=== PATIENT | female | born 1930 | race African-American/Black ===

== ENCOUNTER 2017-06-05 10:24 | Inpatient (IN) | payer MEDICARE, MEDICAID ==
[~2017-06-05] VITALS: Ht 160 cm; Wt 59.0 kg
[2017-06-05] MEDS ORDERED: FOLI-43 PO (10:41)
[2017-06-05] MEDS ORDERED: MULT-1146 PO (10:41)
[2017-06-05] MEDS ORDERED: ASPI-1159 PO (10:41)
[2017-06-05] MEDS ORDERED: GABA-531 PO (10:41)
[2017-06-05] MEDS ORDERED: CITA20TA11 PO (10:41)
[2017-06-05] MEDS ORDERED: ZET10 PO (10:41)
[2017-06-05 11:31] LABS: BASOPHILS % 0.5 % (0.0-2.0); HEMOGLOBIN. 12.4 g/dL (12.0-16.0); LYMPHOCYTES % 28.8 % (20.0-50.0); MEAN CORPUSCULAR HEMOGLOBIN 27.3 pg (28.0-32.0); MEAN CORPUSCULAR VOLUME 83.6 fL (81.0-99.0); MONOCYTES % 6.5 % (2.0-8.0); NEUTROPHILS % 63.2 % (40.0-76.0); PLATELET 179 x1000/uL (130-400); RED BLOOD CELL COUNT 4.55 mill/uL (4.2-5.4); RED CELL DISTRIBUTION WIDTH 13.6 % (11.6-14.6)
[2017-06-05 11:39] LABS: CARBON DIOXIDE 32 mEq/L (21-32); CHLORIDE 105 mEq/L (98-107)
[2017-06-05 11:46] LABS: PROTHROMBIN TIME 10.9 sec (9.4-11.6)
[2017-06-05] MEDS ORDERED: POTASSIUM CHLORIDE 10MEQ TABLET SR PO ONE (13:45)
[2017-06-05] MEDS ORDERED: LISI-186 PO (16:46)
[2017-06-05 17:15] VITALS: BP 154/74
[2017-06-05 17:37] VITALS: BP 154/74
[2017-06-05] MEDS ORDERED: MAGNESIUM/ALUMINUM HYDROXIDE/SIMETHICONE 30ML UDC PO PRN (18:00)
[2017-06-05] MEDS ORDERED: ONDANSETRON HCL 4MG/2ML VIAL IV PRN (18:00)
[2017-06-05] MEDS ORDERED: GUAIFENESIN 200MG/10ML SUGAR FREE UDC PO PRN (18:00)
[2017-06-05] MEDS ORDERED: HYDRALAZINE 20MG/ML VIAL IV PRN (18:00)
[2017-06-05] MEDS ORDERED: CLONIDINE 0.1MG TABLET PO PRN (18:00)
[2017-06-05] MEDS ORDERED: POTASSIUM CHLORIDE 20MEQ/PACKET PO SCH (18:00)
[2017-06-05] MEDS ORDERED: IPRATROPIUM/ALBUTEROL 0.5-3(2.5)MG/3ML NEB INH PRN (18:00)
[2017-06-05] MEDS ORDERED: MAGNESIUM 1 G PREMIX 100 ML IV PRN (18:00)
[2017-06-05] MEDS ORDERED: DIPHENHYDRAMINE 50MG/ML VIAL IV PRN (18:00)
[2017-06-05] MEDS ORDERED: MORPHINE SULFATE 2 MG/ML CPJ (NOT FOR IM USE) IV PRN (18:15)
[2017-06-05 20:00] VITALS: BP 146/74
[2017-06-05] MEDS: CITALOPRAM HYDROBROMIDE 10MG TABLET PO SCH (21:40)
[2017-06-05] MEDS: GABAPENTIN 100MG CAPSULE PO SCH (21:41)
[2017-06-06] VITALS: BP 131/65
[2017-06-06] MEDS: DEXT 5%/0.45% NACL KCL 10MEQ/L 1,000 ML IV SCH ×2 (00:42→20:00)
[2017-06-06 04:00] VITALS: BP 153/73
[2017-06-06] MEDS: ACETAMINOPHEN 325MG TABLET PO PRN ×2 (06:12→22:50)
[2017-06-06] MEDS ORDERED: HYDROMORPHONE HCL/PF 2MG/ML CPJ IV PRN (06:45)
[2017-06-06] MEDS ORDERED: LABETALOL HCL 20MG/4ML CARPUJECT IV PRN (06:45)
[2017-06-06] MEDS ORDERED: ONDANSETRON HCL 4MG/2ML VIAL IV PRN (06:45)
[2017-06-06] MEDS ORDERED: MEPERIDINE HCL/PF 25MG/ML CPJ IV PRN (06:45)
[2017-06-06] MEDS ORDERED: BACITRACIN 50,000 UNITS/VIAL ONE (06:55)
[2017-06-06] MEDS ORDERED: BACITRACIN ZINC 15GM TUBE TOP ONE (06:55)
[2017-06-06] MEDS ORDERED: VANCOMYCIN HCL 500 MG/VIAL ONE (06:55)
[2017-06-06] MEDS ORDERED: NORMAL SALINE 0.9% 10 ML SYR ONE (06:56)
[2017-06-06] MEDS ORDERED: FENTANYL CITRATE/PF 50MCG/ML 2ML VIAL ONE (06:57)
[2017-06-06] MEDS ORDERED: MIDAZOLAM HCL 2 MG/2 ML VIAL ONE (06:57)
[2017-06-06] MEDS ORDERED: ONDANSETRON HCL 4MG/2ML VIAL ONE ×2 (07:08→07:36)
[2017-06-06] MEDS ORDERED: PROPOFOL 200MG/20ML VIAL IV ONE (07:35)
[2017-06-06] MEDS ORDERED: LIDOCAINE HCL 1% 20ML VIAL (Pyxis) INJ ONE (07:35)
[2017-06-06] MEDS ORDERED: CEFAZOLIN SODIUM 1000MG/VIAL ONE (07:35)
[2017-06-06] MEDS ORDERED: EPHEDRINE SULFATE 50MG/ML VIAL ONE (07:36)
[2017-06-06] MEDS ORDERED: DEXAMETHASONE 4MG/ML 1ML VIAL ONE (07:36)
[2017-06-06] MEDS ORDERED: SODIUM CHLORIDE 0.9% 10ML VIAL ONE (07:36)
[2017-06-06 10:00] VITALS: BP 135/69
[2017-06-06 12:47] VITALS: BP 140/72
[2017-06-06] MEDS: CEFAZOLIN 1000MG PREMIX 50 ML IV SCH ×2 (15:13→23:43)
[2017-06-06] MEDS ORDERED: SUCCINYLCHOLINE CHLORIDE 200MG/10ML VIAL IV ONE (15:53)
[2017-06-06 17:38] VITALS: BP 130/70
[2017-06-06 20:00] VITALS: BP 149/76
[2017-06-06] MEDS: GABAPENTIN 100MG CAPSULE PO SCH (21:33)
[2017-06-06] MEDS: CITALOPRAM HYDROBROMIDE 10MG TABLET PO SCH (21:33)
[2017-06-07] VITALS: BP 144/80
[2017-06-07 04:00] VITALS: BP 149/68
[2017-06-07 08:10] VITALS: BP 176/82
[2017-06-07] MEDS: ENOXAPARIN 30MG/0.3ML SYR SUBCUT SCH (10:24)
[2017-06-07 12:46] VITALS: BP 134/62
[2017-06-07] MEDS: ACETAMINOPHEN 325MG TABLET PO PRN (15:45)
[2017-06-07] MEDS: DEXT 5%/0.45% NACL KCL 10MEQ/L 1,000 ML IV SCH ×2 (16:00→23:51)
[2017-06-07] MEDS ORDERED: POLYVINYL ALCOHOL OPHTH DROPS 15ML BOTHEYE PRN (16:30)
[2017-06-07 16:59] VITALS: BP 151/70
[2017-06-07 20:00] VITALS: BP 151/60
[2017-06-07] MEDS: GABAPENTIN 100MG CAPSULE PO SCH (21:33)
[2017-06-07] MEDS: CITALOPRAM HYDROBROMIDE 10MG TABLET PO SCH (21:34)
[2017-06-08] VITALS: BP 122/60
[2017-06-08 04:00] VITALS: BP 130/65
[2017-06-08 07:58] VITALS: BP 137/62
[2017-06-08] MEDS: ENOXAPARIN 30MG/0.3ML SYR SUBCUT SCH (08:53)
[2017-06-08 12:00] VITALS: BP 138/64
[2017-06-08 16:00] VITALS: BP 140/61
[2017-06-08] MEDS: CARBIDOPA/LEVODOPA 10/100MG TABLET PO SCH ×2 (17:05→20:59)
[2017-06-08] MEDS: ACETAMINOPHEN 325MG TABLET PO PRN (17:19)
[2017-06-08 17:50] LABS: VITAMIN B12 SERUM 377 pg/mL (211-911)
[2017-06-08 20:00] VITALS: BP 110/59
[2017-06-08] MEDS: GABAPENTIN 100MG CAPSULE PO SCH (20:59)
[2017-06-09] VITALS (7 sets, daily range): BP systolic 106–171; BP diastolic 53–84
[2017-06-09] MEDS: CARBIDOPA/LEVODOPA 10/100MG TABLET PO SCH ×3 (06:21→20:53)
[2017-06-09] MEDS: ENOXAPARIN 30MG/0.3ML SYR SUBCUT SCH (09:19)
[2017-06-09] MEDS: GABAPENTIN 100MG CAPSULE PO SCH (20:53)
[2017-06-10] VITALS: BP_SYST 131; BP_SYST 150; BP_DIAS 64; BP_DIAS 90
[2017-06-10 04:00] VITALS: BP 130/59
[2017-06-10 05:08] VITALS: BP 130/59
[2017-06-10] MEDS: CARBIDOPA/LEVODOPA 10/100MG TABLET PO SCH ×2 (05:43→14:47)
[2017-06-10 08:00] VITALS: BP 116/52
[2017-06-10] MEDS: ENOXAPARIN 30MG/0.3ML SYR SUBCUT SCH (08:57)
[2017-06-10 12:00] VITALS: BP 100/60
[2017-06-10 16:26] VITALS: BP 100/60
== END 2017-06-10 17:00 | DRG 482 ==
LOC: ER 11:00 → 6WST 12:49 → ENRESERV 15:45 → 8WST 06-09 11:22
PROVIDERS: ADMIT Internal Medicine; ATTEND Internal Medicine
PROC: 0QS734Z Reposition Left Upper Femur with Internal Fixation Device, Percutaneous Approach (ICD-10-PCS; principal; 2017-06-06 06:41)
DX: S72.012A Unspecified intracapsular fracture of left femur, initial encounter for closed fracture (principal); G62.9 Polyneuropathy, unspecified; G20 Parkinson's disease; G30.0 Alzheimer's disease with early onset; F02.80 Dementia in other diseases classified elsewhere, unspecified severity, without behavioral disturbance, psychotic disturbance, mood disturbance, and anxiety; J44.9 Chronic obstructive pulmonary disease, unspecified; I10 Essential (primary) hypertension; E87.6 Hypokalemia; E78.00 Pure hypercholesterolemia, unspecified; W01.0XXA Fall on same level from slipping, tripping and stumbling without subsequent striking against object, initial encounter; Y92.098 Other place in other non-institutional residence as the place of occurrence of the external cause; Y99.8 Other external cause status; Y93.89 Activity, other specified; Z85.3 Personal history of malignant neoplasm of breast; Z90.12 Acquired absence of left breast and nipple; Z88.5 Allergy status to narcotic agent; Z83.3 Family history of diabetes mellitus; Z82.49 Family history of ischemic heart disease and other diseases of the circulatory system; Z80.9 Family history of malignant neoplasm, unspecified; Z79.899 Other long term (current) drug therapy
CPT/HCPCS: 36415; 70450; 71010; 73502; 73503; 80048; 80051; 80061; 82607; 83735; 84443; 85025; 85610; 93005; 93970; 97110; 97112; 97116; 97162; 97166; 97530; 99285; A4216; C1713; J0171; J0330; J0690; J1100; J1650; J2250; J2405; J2704; J3010; J3370; J3490; J7030

== ENCOUNTER 2017-06-10 16:50 | Inpatient (IN) | payer MEDICARE, MEDICAID ==
[~2017-06-10] VITALS: Ht 160.2 cm; Wt 59.0 kg
[~2017-06-10 16:50] MED LIST: ASPI-1159 PO; CITA20TA11 PO; FOLI-43 PO; GABA-531 PO; LISI-186 PO; MULT-1146 PO; ZET10 PO
[2017-06-10 20:00] VITALS: BP_SYST 140; BP_SYST 147; BP_DIAS 75
[2017-06-10] MEDS ORDERED: HYDRALAZINE HCL 10MG TABLET PO PRN (20:45)
[2017-06-10] MEDS ORDERED: MORPHINE SULFATE 2 MG/ML CPJ (NOT FOR IM USE) IV PRN (20:45)
[2017-06-10] MEDS ORDERED: GUAIFENESIN 200MG/10ML SUGAR FREE UDC PO PRN (21:00)
[2017-06-10] MEDS ORDERED: MORPHINE SULFATE 4 MG/ML CPJ (NOT FOR IM USE) IV PRN ×2 (21:00)
[2017-06-10] MEDS ORDERED: MAGNESIUM/ALUMINUM HYDROXIDE/SIMETHICONE 30ML UDC PO PRN (21:00)
[2017-06-10] MEDS ORDERED: IPRATROPIUM/ALBUTEROL 0.5-3(2.5)MG/3ML NEB HHN PRN (21:00)
[2017-06-10] MEDS ORDERED: ONDANSETRON HCL 4MG/2ML VIAL IV PRN (21:00)
[2017-06-10] MEDS ORDERED: POLYVINYL ALCOHOL OPHTH DROPS 15ML BOTHEYE PRN (22:00)
[2017-06-10] MEDS: CARBIDOPA/LEVODOPA 10/100MG TABLET PO SCH (22:23)
[2017-06-10] MEDS: ACETAMINOPHEN 650MG/20.3ML UDC PO PRN (22:23)
[2017-06-10] MEDS: GABAPENTIN 100MG CAPSULE PO SCH (22:23)
[2017-06-11] VITALS: BP 130/68
[2017-06-11] MEDS: CARBIDOPA/LEVODOPA 10/100MG TABLET PO SCH ×3 (06:40→22:53)
[2017-06-11 08:00] VITALS: BP 97/65
[2017-06-11] MEDS: ENOXAPARIN 30MG/0.3ML SYR SUBCUT SCH (08:26)
[2017-06-11] MEDS ORDERED: TRAMADOL 50MG TABLET PO PRN (13:15)
[2017-06-11 20:00] VITALS: BP 166/57
[2017-06-11] MEDS: ACETAMINOPHEN 650MG/20.3ML UDC PO PRN (22:52)
[2017-06-11] MEDS: GABAPENTIN 100MG CAPSULE PO SCH (22:53)
[2017-06-12] MEDS: CARBIDOPA/LEVODOPA 10/100MG TABLET PO SCH ×3 (06:19→22:00)
[2017-06-12 08:00] VITALS: BP 130/63
[2017-06-12] MEDS: ENOXAPARIN 30MG/0.3ML SYR SUBCUT SCH (08:48)
[2017-06-12] MEDS ORDERED: DEXT 5%/0.45% NACL 500ML 500 ML IV ONE (11:30)
[2017-06-12 14:01] LABS: HEMATOCRIT. 33.7 % (36.0-48.0); HEMOGLOBIN. 11.1 g/dL (12.0-16.0); MEAN CORPUSCULAR HEMOGLOBIN 27.5 pg (28.0-32.0); MEAN CORPUSCULAR VOLUME 83.8 fL (81.0-99.0); MEAN PLATELET VOLUME 8.3 fl (7.4-10.4); PLATELET 206 x1000/uL (130-400); RED BLOOD CELL COUNT 4.03 mill/uL (4.2-5.4); RED CELL DISTRIBUTION WIDTH 13.8 % (11.6-14.6)
[2017-06-12 14:19] LABS: CHLORIDE 102 mEq/L (98-107)
[2017-06-12 14:35] LABS: CARBON DIOXIDE 32 mEq/L (21-32)
[2017-06-12] MEDS: BISACODYL 5MG TABLET PO PRN (14:37)
[2017-06-12] MEDS: DOCUSATE SODIUM 100MG CAPSULE PO SCH ×2 (14:37→17:19)
[2017-06-12 17:26] LABS: PLATELET ESTIMATE NORMAL
[2017-06-12 20:00] VITALS: BP 158/64
[2017-06-12] MEDS: DEXT 5%/0.45% NACL KCL 10MEQ/L 1,000 ML IV SCH (20:13)
[2017-06-12 21:21] LABS: CLARITY URINE TURBID (CLEAR); COLOR URINE YELLOW (YELLOW); GLUCOSE URINE NEGATIVE (NEGATIVE); KETONES URINE NEGATIVE (NEGATIVE); LEUKOCYTE ESTERASE URINE 3+ (NEGATIVE); NITRITE URINE NEGATIVE (NEGATIVE); OCCULT BLOOD URINE 2+ (NEGATIVE); PH URINE 7.5 (4.5-8.0); PROTEIN URINE 2+ (NEGATIVE); SPECIFIC GRAVITY URINE 1.023 (1.005-1.030)
[2017-06-13 07:12] LABS: HEMATOCRIT. 28.7 % (36.0-48.0); HEMOGLOBIN. 9.4 g/dL (12.0-16.0); MEAN CORPUSCULAR HEMOGLOBIN 27.4 pg (28.0-32.0); MEAN CORPUSCULAR VOLUME 83.3 fL (81.0-99.0); MEAN PLATELET VOLUME 8.4 fl (7.4-10.4); PLATELET 195 x1000/uL (130-400); RED BLOOD CELL COUNT 3.45 mill/uL (4.2-5.4); RED CELL DISTRIBUTION WIDTH 13.7 % (11.6-14.6)
[2017-06-13 08:00] VITALS: BP 168/79
[2017-06-13 08:34] LABS: CARBON DIOXIDE 29 mEq/L (21-32); CHLORIDE 104 mEq/L (98-107)
[2017-06-13] MEDS: DOCUSATE SODIUM 100MG CAPSULE PO SCH ×2 (09:52→17:50)
[2017-06-13] MEDS: CARBIDOPA/LEVODOPA 10/100MG TABLET PO SCH ×2 (09:52→17:50)
[2017-06-13] MEDS: ENOXAPARIN 30MG/0.3ML SYR SUBCUT SCH (09:53)
[2017-06-13] MEDS: DEXT 5%/0.45% NACL KCL 10MEQ/L 1,000 ML IV SCH (09:53)
[2017-06-13] MEDS: SULFAMETHOXAZOLE/TRIMETHOPRIM 800/160MG TABLET PO SCH ×2 (09:53→21:14)
[2017-06-13] MEDS: CLONIDINE 0.1MG TABLET PO PRN (09:53)
[2017-06-13] MEDS: LISINOPRIL 2.5MG TABLET PO SCH (11:45)
[2017-06-13] MEDS: CEFTRIAXONE 1 G PREMIX 50 ML IV SCH (13:31)
[2017-06-13 13:35] VITALS: BP 114/48
[2017-06-13] MEDS: ACETAMINOPHEN 650MG/20.3ML UDC PO PRN (14:40)
[2017-06-13 17:50] LABS: PLATELET ESTIMATE NORMAL
[2017-06-13 20:00] VITALS: BP 134/59
[2017-06-14] MEDS: DEXT 5%/0.45% NACL KCL 10MEQ/L 1,000 ML IV SCH ×2 (06:19→11:40)
[2017-06-14 08:00] VITALS: BP 119/59
[2017-06-14] MEDS: CARBIDOPA/LEVODOPA 10/100MG TABLET PO SCH ×2 (09:04→17:21)
[2017-06-14] MEDS: SULFAMETHOXAZOLE/TRIMETHOPRIM 800/160MG TABLET PO SCH ×2 (09:04→21:25)
[2017-06-14] MEDS: LISINOPRIL 2.5MG TABLET PO SCH (09:04)
[2017-06-14] MEDS: ENOXAPARIN 30MG/0.3ML SYR SUBCUT SCH (09:04)
[2017-06-14] MEDS: DOCUSATE SODIUM 100MG CAPSULE PO SCH ×2 (09:04→17:21)
[2017-06-14] MEDS: ACETAMINOPHEN 650MG/20.3ML UDC PO PRN (09:12)
[2017-06-14] MEDS: CEFTRIAXONE 1 G PREMIX 50 ML IV SCH (13:37)
[2017-06-14 20:00] VITALS: BP 168/66
[2017-06-14] MEDS: CLONIDINE 0.1MG TABLET PO PRN (21:25)
[2017-06-15 08:00] VITALS: BP 163/79
[2017-06-15] MEDS: ENOXAPARIN 30MG/0.3ML SYR SUBCUT SCH (09:28)
[2017-06-15] MEDS: CARBIDOPA/LEVODOPA 10/100MG TABLET PO SCH ×2 (09:28→17:10)
[2017-06-15] MEDS: SULFAMETHOXAZOLE/TRIMETHOPRIM 800/160MG TABLET PO SCH ×2 (09:28→21:03)
[2017-06-15] MEDS: LISINOPRIL 2.5MG TABLET PO SCH (09:29)
[2017-06-15] MEDS: DOCUSATE SODIUM 100MG CAPSULE PO SCH ×2 (09:29→17:10)
[2017-06-15 20:00] VITALS: BP 165/57
[2017-06-16] MEDS: ACETAMINOPHEN 650MG/20.3ML UDC PO PRN (03:08)
[2017-06-16 08:00] VITALS: BP 155/67
[2017-06-16] MEDS: SULFAMETHOXAZOLE/TRIMETHOPRIM 800/160MG TABLET PO SCH ×2 (09:11→21:30)
[2017-06-16] MEDS: CARBIDOPA/LEVODOPA 10/100MG TABLET PO SCH ×2 (09:11→16:18)
[2017-06-16] MEDS: LISINOPRIL 2.5MG TABLET PO SCH ×2 (09:12→21:30)
[2017-06-16] MEDS: DOCUSATE SODIUM 100MG CAPSULE PO SCH ×2 (09:12→16:18)
[2017-06-16] MEDS: ENOXAPARIN 30MG/0.3ML SYR SUBCUT SCH (09:12)
[2017-06-16 20:00] VITALS: BP 134/57
[2017-06-17 08:00] VITALS: BP 135/57
[2017-06-17] MEDS: DOCUSATE SODIUM 100MG CAPSULE PO SCH ×2 (09:31→17:24)
[2017-06-17] MEDS: LISINOPRIL 2.5MG TABLET PO SCH ×2 (09:31→21:00)
[2017-06-17] MEDS: CARBIDOPA/LEVODOPA 10/100MG TABLET PO SCH ×2 (09:31→17:24)
[2017-06-17] MEDS: SULFAMETHOXAZOLE/TRIMETHOPRIM 800/160MG TABLET PO SCH ×2 (09:31→22:24)
[2017-06-17] MEDS: ENOXAPARIN 30MG/0.3ML SYR SUBCUT SCH (09:32)
[2017-06-17] MEDS ORDERED: NA PHOS,M-B/NA PHOS,DI-BA ENEMA 118ML PR PRN (14:30)
[2017-06-17] MEDS: BISACODYL 5MG TABLET PO PRN (17:23)
[2017-06-17 19:00] VITALS: BP 118/53
[2017-06-18 08:00] VITALS: BP 100/49
[2017-06-18] MEDS: LISINOPRIL 2.5MG TABLET PO SCH ×2 (09:00→21:00)
[2017-06-18] MEDS: SULFAMETHOXAZOLE/TRIMETHOPRIM 800/160MG TABLET PO SCH ×2 (09:07→23:00)
[2017-06-18] MEDS: CARBIDOPA/LEVODOPA 10/100MG TABLET PO SCH ×2 (09:07→17:40)
[2017-06-18] MEDS: DOCUSATE SODIUM 100MG CAPSULE PO SCH ×2 (09:07→17:40)
[2017-06-18] MEDS: ENOXAPARIN 30MG/0.3ML SYR SUBCUT SCH (09:08)
[2017-06-18] MEDS ORDERED: DEXT 5%/0.45% NACL 500ML 500 ML IV ONE (16:00)
[2017-06-18] MEDS: ZINC SULFATE 220 MG ( 50 ) CAPSULE PO SCH (17:40)
[2017-06-18] MEDS: FERROUS SULFATE 325MG TABLET PO SCH (17:40)
[2017-06-18 19:38] LABS: BASOPHILS % 1.3 % (0.0-2.0); EOSINOPHILS % 0.5 % (0.0-5.0); HEMATOCRIT. 31.1 % (36.0-48.0); HEMOGLOBIN. 10.2 g/dL (12.0-16.0); LYMPHOCYTES % 18.4 % (20.0-50.0); MEAN CORPUSCULAR HEMOGLOBIN 27.4 pg (28.0-32.0); MEAN CORPUSCULAR VOLUME 83.2 fL (81.0-99.0); MEAN PLATELET VOLUME 7.7 fl (7.4-10.4); MONOCYTES % 6.3 % (2.0-8.0); NEUTROPHILS % 73.5 % (40.0-76.0); PLATELET 342 x1000/uL (130-400); RED BLOOD CELL COUNT 3.74 mill/uL (4.2-5.4); RED CELL DISTRIBUTION WIDTH 13.6 % (11.6-14.6)
[2017-06-18 20:00] VITALS: BP 118/62
[2017-06-18 20:02] LABS: CARBON DIOXIDE 25 mEq/L (21-32); CHLORIDE 103 mEq/L (98-107)
[2017-06-19 08:00] VITALS: BP 117/49
[2017-06-19] MEDS: CARBIDOPA/LEVODOPA 10/100MG TABLET PO SCH (09:45)
[2017-06-19] MEDS: LISINOPRIL 2.5MG TABLET PO SCH ×2 (09:46→21:00)
[2017-06-19] MEDS: DOCUSATE SODIUM 100MG CAPSULE PO SCH ×2 (09:46→18:28)
[2017-06-19] MEDS: FERROUS SULFATE 325MG TABLET PO SCH ×3 (09:46→18:28)
[2017-06-19] MEDS: ENOXAPARIN 30MG/0.3ML SYR SUBCUT SCH (09:46)
[2017-06-19] MEDS: SULFAMETHOXAZOLE/TRIMETHOPRIM 800/160MG TABLET PO SCH ×2 (09:46→21:37)
[2017-06-19] MEDS: ZINC SULFATE 220 MG ( 50 ) CAPSULE PO SCH (09:46)
[2017-06-19 20:00] VITALS: BP 103/65
[2017-06-20 08:00] VITALS: BP 120/44
[2017-06-20] MEDS: DOCUSATE SODIUM 100MG CAPSULE PO SCH ×2 (08:15→17:59)
[2017-06-20] MEDS: LISINOPRIL 2.5MG TABLET PO SCH ×2 (08:16→21:38)
[2017-06-20] MEDS: SULFAMETHOXAZOLE/TRIMETHOPRIM 800/160MG TABLET PO SCH (08:16)
[2017-06-20] MEDS: FERROUS SULFATE 325MG TABLET PO SCH ×3 (08:16→17:59)
[2017-06-20] MEDS: ENOXAPARIN 30MG/0.3ML SYR SUBCUT SCH (08:17)
[2017-06-20] MEDS: ZINC SULFATE 220 MG ( 50 ) CAPSULE PO SCH (08:25)
[2017-06-20 13:45] VITALS: BP 84/50
[2017-06-20 13:50] VITALS: BP 105/43
[2017-06-20 19:45] VITALS: BP 86/54
[2017-06-20 20:00] VITALS: BP 122/46
[2017-06-21 08:00] VITALS: BP 96/50
[2017-06-21] MEDS: LISINOPRIL 2.5MG TABLET PO SCH (09:00)
[2017-06-21] MEDS: ZINC SULFATE 220 MG ( 50 ) CAPSULE PO SCH (09:12)
[2017-06-21] MEDS: DOCUSATE SODIUM 100MG CAPSULE PO SCH (09:12)
[2017-06-21] MEDS: FERROUS SULFATE 325MG TABLET PO SCH ×2 (09:12→12:32)
[2017-06-21] MEDS: ENOXAPARIN 30MG/0.3ML SYR SUBCUT SCH (09:13)
[2017-06-21 16:04] VITALS: BP 123/64
[2017-06-21 16:31] VITALS: BP 123/64
== END 2017-06-21 17:10 | DRG 535 ==
PROVIDERS: ADMIT Psychiatry & Neurology Neurology; ATTEND Internal Medicine
DX: S72.012A Unspecified intracapsular fracture of left femur, initial encounter for closed fracture (principal); G93.40 Encephalopathy, unspecified; G20 Parkinson's disease; G62.9 Polyneuropathy, unspecified; N39.0 Urinary tract infection, site not specified; F06.8 Other specified mental disorders due to known physiological condition; I10 Essential (primary) hypertension; E78.5 Hyperlipidemia, unspecified; R26.89 Other abnormalities of gait and mobility; D63.8 Anemia in other chronic diseases classified elsewhere; E78.00 Pure hypercholesterolemia, unspecified; F06.31 Mood disorder due to known physiological condition with depressive features; F32.9 Major depressive disorder, single episode, unspecified; I95.1 Orthostatic hypotension; M19.90 Unspecified osteoarthritis, unspecified site; R62.7 Adult failure to thrive; Z85.3 Personal history of malignant neoplasm of breast; W18.39XA Other fall on same level, initial encounter; Z90.12 Acquired absence of left breast and nipple; Z79.82 Long term (current) use of aspirin; Z79.899 Other long term (current) drug therapy; Z91.81 History of falling
CPT/HCPCS: 36415; 80053; 81001; 82962; 85025; 87077; 87086; 87186; 92523; 92610; 97110; 97112; 97116; 97162; 97167; 97530; 97532; 97535; A6261; C1893; J0696; J1650; J2405

== ENCOUNTER 2017-10-20 16:16 | Emergency (ER) | payer MEDICARE, MEDICAID ==
[~2017-10-20] VITALS: Ht 162.6 cm; Wt 44.2 kg
[2017-10-20] MEDS ORDERED: DEXTROSE 50% WATER 50ML SYRINGE IV STA (16:26)
[2017-10-20] MEDS ORDERED: DEXTROSE 50% WATER 50ML SYRINGE IV ONE (16:33)
[2017-10-20 17:14] LABS: BASOPHILS % 0.5 % (0.0-2.0); HEMATOCRIT. 40.3 % (36.0-48.0); HEMOGLOBIN. 13.1 g/dL (12.0-16.0); LYMPHOCYTES % 7.4 % (20.0-50.0); MEAN CORPUSCULAR HEMOGLOBIN 27.9 pg (28.0-32.0); MONOCYTES % 5.6 % (2.0-8.0); NEUTROPHILS % 86.5 % (40.0-76.0); PLATELET 190 x1000/uL (130-400); RED BLOOD CELL COUNT 4.69 mill/uL (4.2-5.4); RED CELL DISTRIBUTION WIDTH 13.5 % (11.6-14.6)
[2017-10-20 17:21] LABS: INR 1.1; PARTIAL THROMBOPLASTIN TIME 22.2 sec (23.4-31.0)
[2017-10-20 17:43] LABS: CHLORIDE 106 mEq/L (98-107); LDL CHOLESTEROL 71 mg/dL (5-100); TROPONIN I < 0.02 ng/mL (0.00-0.04)
[2017-10-20 17:54] LABS: CLARITY URINE CLEAR (CLEAR); COLOR URINE DARK YELLOW (YELLOW); KETONES URINE 2+ (NEGATIVE); LEUKOCYTE ESTERASE URINE NEGATIVE (NEGATIVE); NITRITE URINE NEGATIVE (NEGATIVE); OCCULT BLOOD URINE NEGATIVE (NEGATIVE); PH URINE 5.5 (4.5-8.0); PROTEIN URINE TRACE (NEGATIVE); SPECIFIC GRAVITY URINE 1.032 (1.005-1.030)
[2017-10-20] MEDS ORDERED: IOHEXOL-350 100 ML BOTTLE ONE (18:27)
[2017-10-20] MEDS ORDERED: SODIUM CHLORIDE 0.9% 1,000 ML IV ONE (18:30)
[2017-10-20] MEDS ORDERED: ASPIRIN 300MG SUPP PR ONE (19:30)
[2017-10-20] MEDS ORDERED: CEFTRIAXONE 1 G PREMIX 50 ML IV ONE (19:45)
[2017-10-20 22:04] VITALS: BP 160/83
== END 2017-10-20 23:05 | disposition short-term general hospital (02) ==
LOC: ER 16:16
DX: I63.9 Cerebral infarction, unspecified (principal); E86.0 Dehydration; J44.9 Chronic obstructive pulmonary disease, unspecified; I10 Essential (primary) hypertension; G20 Parkinson's disease; Z79.82 Long term (current) use of aspirin
CPT/HCPCS: 36415; 51702; 70450; 70496; 70498; 71045; 80053; 81001; 82962; 83690; 83721; 84484; 85025; 85610; 85730; 93005; 96361; 96365; 96375; 99291; J0696; J7030; Q9967; A4315